=== PATIENT | female | born 1980 | race American Indian/Alaskan Native ===

== ENCOUNTER 2017-11-08 10:31 | Emergency (ER) | payer OTHER ==
[2017-11-08 10:38] VITALS: BP 156/101
[2017-11-08] MEDS ORDERED: BABY ASPIRIN PO ONE (11:31)
--- NOTE | 2017-11-08 11:41 | Emergency Department Report ---
Blank Doc - Documentation Documentation: Screening Note: Ms Hicks is a 37 year-old woman with hx of HTN who presents with dyspnea, chest pain. has been having shortness of breath for one week. Exertional dyspnea. Endorses orthopnea. decreased appetite. left sided chest pain intermittent for 2 days. none now. Last episode was while at rest. No radiation of pain. Takes HCTZ at home. Exam with clear lungs, no LE swelling, no abdominal distension. EKG non-ischemic , NSR. Suspect this is MSK pain vs PNA vs new onset CHF. much less likely ACS. PERC negative. Highest clinical concern for new onset heart failure. To main ED for further work-up. Trop, CMP, CBC, CXR, EKG. Given 324mg ASA.
--- NOTE | 2017-11-08 12:00 | XRay Report ---
ROUTINE CHEST, TWO VIEWS: HISTORY: Dyspnea. The trachea, heart, mediastinal contour, lung madrigal and bony thorax are unremarkable. IMPRESSION: Unremarkable chest x-ray.
[2017-11-08 12:26] LABS: Basophils # (Auto) 0.1 K/mm3 (0.0-0.1); Basophils % (Auto) 0.7 % (0.0-1.8); Eosinophils # (Auto) 0.1 K/mm3 (0.0-0.4); Eosinophils % (Auto) 1.1 % (0.0-4.3); Hematocrit 34.3 % (30.3-42.9); Hemoglobin 11.6 gm/dl (10.1-14.3); Lymphocytes # (Auto) 1.4 K/mm3 (1.2-5.4); Lymphocytes % (Auto) 17.6 % (13.4-35.0); Mean Corpuscular HGB Conc 34 % (30-34); Mean Corpuscular Volume 72 fl (79-97); Monocytes # (Auto) 0.4 K/mm3 (0.0-0.8); Monocytes % (Auto) 4.6 % (0.0-7.3); Platelet Count 384 K/mm3 (140-440); Red Blood Count 4.74 M/mm3 (3.65-5.03); Red Cell Distribution Width 18.7 % (13.2-15.2)
[2017-11-08 12:43] LABS: Alanine Aminotransferase 12 units/L (7-56); Albumin 3.7 g/dL (3.9-5); BUN/Creatinine Ratio 11; Blood Urea Nitrogen 8 mg/dL (7-17); Calcium 9.3 mg/dL (8.4-10.2)
[2017-11-08 12:44] LABS: Hemolysis Index 20
--- NOTE | 2017-11-08 12:46 | Emergency Department Report ---
ED Chest Pain HPI - General Chief Complaint: Chest Pain Stated Complaint: CP/SOB/LEG/FOOT PAIN Time Seen by Provider: 11/08/17 11:26 Source: patient Mode of arrival: Ambulatory Limitations: No Limitations - History of Present Illness Initial Comments: Ms. Hicks is a 37-year-old female who presents with chest pain. Chest pain began suddenly last night left-sided while she was at rest. The feeling of someone stepping on her chest. This sensation lasted 10-20 minutes. When she woke up the chest pain recurred. Chest pain now resolved. She's had 1 week of shortness of breath. She's had bilateral ankle swelling. She's noticed bruising on her right lower leg. No change in medication. She is followed by physician at [facility]. She has a follow-up appointment scheduled with her primary physician on Monday. No family history of heart disease. She does not smoke tobacco. 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 Complaint: chest pain -: Sudden, Last night Pain Location: left chest Pain Radiation: none Severity: moderate Quality: tightness, heaviness Consistency: now resolved Improves With: nothing Worsens With: nothing re: dyspnea - Related Data Previous Rx's Medication Instructions Recorded Last Taken Type HYDROcodone/APAP 5-325 [[place] 1 each PO Q6HR PRN #20 tablet 02/10/16 Unknown Rx 5/325] Allergies Allergy/AdvReac Type Severity Reaction Status Date / Time No Known Allergies Allergy Unverified 02/10/16 08:35 Heart Score - HEART Score History: Slightly suspicious EKG: Normal Age: < 45 Risk factors: 1-2 risk factors Troponin: < normal limit HEART Score: 1 ED Review of Systems ROS: Stated complaint: CP/SOB/LEG/FOOT PAIN Other details as noted in HPI Comment: All other systems reviewed and negative Constitutional: denies: fever, malaise Respiratory: denies: cough Cardiovascular: chest pain ED Past Medical Hx - Past Medical History Previous Medical History?: Yes Hx Hypertension: Yes Additional medical history: chronic sinusitis - Surgical History Past Surgical History?: Yes Additional Surgical History: tubal ligation, tumor removal from neck, nasal polpys - Social History Smoking Status: Never Smoker Substance Use Type: Alcohol - Medications Home Medications: Home Medications Medication Instructions Recorded Confirmed Last Taken Type HYDROcodone/APAP 5-325 [[place] 1 each PO Q6HR PRN #20 tablet 02/10/16 Unknown Rx 5/325] ED Physical Exam - General Limitations: No Limitations General appearance: alert, in no apparent distress - Head Head exam: Present: atraumatic, normocephalic - Eye Eye exam: Present: normal appearance - ENT ENT exam: Present: mucous membranes moist - Neck Neck exam: Present: normal inspection - Respiratory Respiratory exam: Present: normal lung sounds bilaterally. Absent: respiratory distress, wheezes, rales, rhonchi - Cardiovascular Cardiovascular Exam: Present: regular rate, normal rhythm, normal heart sounds. Absent: systolic murmur, diastolic murmur, rubs, gallop - GI/Abdominal GI/Abdominal exam: Present: soft, normal bowel sounds. Absent: distended, tenderness, guarding, rebound - Extremities Exam Extremities exam: Present: normal inspection, full ROM, normal capillary refill. Absent: tenderness, pedal edema, joint swelling - Back Exam Back exam: Present: normal inspection - Neurological Exam Neurological exam: Present: alert, oriented X3 - Psychiatric Psychiatric exam: Present: normal affect, normal mood - Skin Skin exam: Present: warm, dry, intact, normal color. Absent: rash ED Course Vital Signs 11/08/17 11/08/17 10:33 11:09 Temperature 98.9 F Pulse Rate 72 Respiratory 14 17 Rate Blood Pressure 156/101 O2 Sat by Pulse 99 Oximetry ED Medical Decision Making - Lab Data Result diagrams: 11/08/17 11:58 11/08/17 11:58 Laboratory Results - last 24 hr 11/08/17 11/08/17 11:58 11:58 WBC 7.9 RBC 4.74 Hgb 11.6 Hct 34.3 MCV 72 L MCH 25 L MCHC 34 RDW 18.7 H Plt Count 384 Lymph % (Auto) 17.6 [place] % (Auto) 4.6 Eos % (Auto) 1.1 Baso % (Auto) 0.7 Lymph # 1.4 [place] # 0.4 Eos # 0.1 Baso # 0.1 Seg Neutrophils % 76.0 H Seg Neutrophils # 6.0 Sodium 138 Potassium 4.3 Chloride 100.2 Carbon Dioxide 24 Anion Gap 18 BUN 8 Creatinine 0.7 Estimated GFR > 60 BUN/Creatinine Ratio 11 Glucose 124 H Calcium 9.3 Total Bilirubin 0.40 AST 12 ALT 12 Alkaline Phosphatase 61 Troponin T < 0.010 NT-Pro-B Natriuret Pep 17.05 Total Protein 7.6 Albumin 3.7 L Albumin/Globulin Ratio 0.9 Vital Signs - 24 hr 11/08/17 11/08/17 10:33 11:09 Temperature 98.9 F Pulse Rate 72 Respiratory 14 17 Rate Blood Pressure 156/101 O2 Sat by Pulse 99 Oximetry - EKG Data EKG shows normal: sinus rhythm, axis, intervals, QRS complexes, ST-T waves Rate: normal - EKG Data Interpretation: normal EKG 11/08/17 12:43 NSR nl rate nl axis nl intervals no ST-T signs of ischemia no ST elevation rate 70 bpm no signs of pericarditis - Radiology Data Radiology results: report reviewed no acute process - Medical Decision Making Ms. Hicks presents with chest pain atypical for ACS. She has normal EKG and low heart score. No indication of PE. She is perc negative. Pain has resolved and not persistent. 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 I do not see evidence of lower extremity edema at this time. I did see 3 small healing bruises 2-3 cm in diameter at the lateral region of the right lower leg. No indication of DVT. Bruising likely associated with iron deficiency anemia. She has PCP appt scheduled on Monday with her PCP. I recommended outpatient cardiac stress test. Critical care attestation.: If time is entered above; I have spent that time in minutes in the direct care of this critically ill patient, excluding procedure time. ED Disposition Clinical Impression: Edema, Chest pain, Dyspnea Disposition: - TO HOME OR SELFCARE Is pt being admited?: No Does the pt Need Aspirin: No Condition: Stable Instructions: Chest Pain (ED), Leg Edema (ED) Additional Instructions: Please have your doctor arrange outpatient stress test and echocardiogram. Referrals: PRIMARY CARE, [Primary Care Provider] - 2-3 Days Forms: Work/School Release Form(ED) Time of Disposition: 13:50
[2017-11-08 12:47] LABS: Mean Corpuscular Hemoglobin 25 pg (28-32)
== END 2017-11-08 15:11 | disposition home or self-care (01) ==
LOC: ED 10:31
DX: R07.89 Other chest pain (principal); R06.00 Dyspnea, unspecified; R60.9 Edema, unspecified; I10 Essential (primary) hypertension; Z98.51 Tubal ligation status
CPT/HCPCS: 36415; 71046; 80053; 83880; 84484; 85025; 93005; 93010